=== PATIENT | female | born 1955 | race Caucasian/White ===

== ENCOUNTER 2018-03-23 12:41 | Inpatient (IN) | payer MEDICARE, MEDICAID ==
[~2018-03-23] VITALS: Ht 157.5 cm; Wt 72.6 kg
[2018-03-23 15:08] LABS: BASOPHILS % 0.9 % (0.0-2.0); EOSINOPHILS % 1.1 % (0.0-5.0); HEMATOCRIT. 32.3 % (36.0-48.0); HEMOGLOBIN. 10.8 g/dL (12.0-16.0); LYMPHOCYTES % 10.2 % (20.0-50.0); MEAN CORPUSCULAR VOLUME 86.9 fL (81.0-99.0); MEAN PLATELET VOLUME 9.1 fl (7.4-10.4); MONOCYTES % 8.2 % (2.0-8.0); NEUTROPHILS % 79.6 % (40.0-76.0); PLATELET 260 x1000/uL (130-400); RED BLOOD CELL COUNT 3.72 mill/uL (4.2-5.4); RED CELL DISTRIBUTION WIDTH 16.4 % (11.6-14.6)
[2018-03-23 15:13] LABS: CHLORIDE 100 mEq/L (98-107)
[2018-03-23 15:15] LABS: INR 1.1; PROTHROMBIN TIME 10.9 sec (9.1-11.1)
[2018-03-23 15:23] LABS: ETHANOL BLOOD < 10 mg/dL
[2018-03-23 15:26] LABS: CREATINE KINASE MB FRACTION < 1.0 ng/mL (0.5-3.6)
[2018-03-23 15:27] LABS: CREATINE KINASE 19 IU/L (26-192)
[2018-03-23] MEDS ORDERED: DILTIAZEM HCL 5MG/ML 5ML VIAL IV NR (15:45)
[2018-03-23] MEDS ORDERED: DILTIAZEM HCL 5MG/ML 5ML VIAL IV ONE (15:45)
[2018-03-23] MEDS ORDERED: ONDANSETRON HCL 4MG/2ML INJ IV ONE (15:45)
[2018-03-23] MEDS ORDERED: FUROSEMIDE 20MG/2ML VIAL IVP ONE (15:45)
[2018-03-23] MEDS ORDERED: HYDROCODONE/ACETAMINOPHEN 5/325MG TABLET PO ONE (15:45)
[2018-03-23] MEDS ORDERED: MAGNESIUM/ALUMINUM HYDROXIDE/SIMETHICONE 30ML UDC PO PRN (16:45)
[2018-03-23] MEDS ORDERED: GUAIFENESIN 200MG/10ML SUGAR FREE UDC PO PRN (16:45)
[2018-03-23] MEDS ORDERED: ONDANSETRON HCL 4MG/2ML INJ IV PRN (16:45)
[2018-03-23] MEDS ORDERED: LORAZEPAM 0.5MG TABLET PO PRN (16:45)
[2018-03-23] MEDS ORDERED: DIPHENHYDRAMINE 50MG/ML VIAL IV PRN (16:45)
[2018-03-23] MEDS ORDERED: KCL 10MEQ/50ML PREMIX 50 ML IV ONE (16:45)
[2018-03-23] MEDS ORDERED: ACETAMINOPHEN 325MG TABLET PO PRN (16:45)
[2018-03-23] MEDS ORDERED: POTASSIUM CHLORIDE INJ 40 MEQ in DEXT 5% WATER 250 ML IV ONE (16:45)
[2018-03-23] MEDS ORDERED: MAGNESIUM 2 G PREMIX 50 ML IV ONE (16:45)
[2018-03-23] MEDS ORDERED: POTASSIUM CHLORIDE 20MEQ TABLET SR PO ONE (16:45)
[2018-03-23] MEDS ORDERED: ACETAMINOPHEN 650MG SUPP PR PRN (16:45)
[2018-03-23] MEDS ORDERED: CLONIDINE 0.1MG TABLET PO PRN (16:45)
[2018-03-23] MEDS ORDERED: DOCUSATE SODIUM 100MG CAPSULE PO PRN (16:45)
[2018-03-23] MEDS ORDERED: IPRATROPIUM/ALBUTEROL 0.5-3(2.5)MG/3ML NEB INH PRN (16:45)
[2018-03-23] MEDS ORDERED: KCL 20MEQ/100ML PREMIX 100 ML IV ONE (17:15)
[2018-03-23 21:00] VITALS: BP 116/69
[2018-03-23 21:25] VITALS: BP 116/69
[2018-03-23] MEDS ORDERED: DIGOXIN 500MCG/2ML AMP IV NR (21:35)
[2018-03-23] MEDS ORDERED: NA PHOS,M-B/NA PHOS,DI-BA ENEMA 118ML PR PRN (22:00)
[2018-03-23] MEDS: ALLOPURINOL 100 MG TABLET PO SCH (22:07)
[2018-03-23] MEDS: DILTIAZEM HCL 30MG TABLET PO SCH (22:08)
[2018-03-23] MEDS: ENOXAPARIN 60MG/0.6ML SYR SUBCUT SCH (22:09)
[2018-03-23] MEDS ORDERED: MAGNESIUM 2 G PREMIX 50 ML IV NR (22:30)
[2018-03-23] MEDS: DEXT 5%/0.45% NACL KCL 20MEQ/L 1,000 ML IV SCH (23:34)
[2018-03-24] VITALS (7 sets, daily range): BP systolic 90–124; BP diastolic 61–94
[2018-03-24 00:21] LABS: CREATINE KINASE 20 IU/L (26-192)
[2018-03-24 00:22] LABS: CREATINE KINASE MB FRACTION < 1.0 ng/mL (0.5-3.6)
[2018-03-24 06:40] LABS: BASOPHILS % 1.2 % (0.0-2.0); EOSINOPHILS % 7.4 % (0.0-5.0); HEMOGLOBIN. 9.8 g/dL (12.0-16.0); LYMPHOCYTES % 24.5 % (20.0-50.0); MEAN CORPUSCULAR HEMOGLOBIN 29.2 pg (28.0-32.0); MEAN CORPUSCULAR VOLUME 86.6 fL (81.0-99.0); MEAN PLATELET VOLUME 9.3 fl (7.4-10.4); MONOCYTES % 8.4 % (2.0-8.0); NEUTROPHILS % 58.5 % (40.0-76.0); PLATELET 248 x1000/uL (130-400); RED BLOOD CELL COUNT 3.35 mill/uL (4.2-5.4); RED CELL DISTRIBUTION WIDTH 16.6 % (11.6-14.6)
[2018-03-24] MEDS: DILTIAZEM HCL 30MG TABLET PO SCH ×3 (06:40→22:24)
[2018-03-24 07:04] LABS: CHLORIDE 99 mEq/L (98-107)
[2018-03-24 07:21] LABS: LDL CHOLESTEROL 137 mg/dL (5-100); PHOSPHORUS 2.6 mg/dL (2.5-4.9)
[2018-03-24 07:22] LABS: CREATINE KINASE MB FRACTION < 1.0 ng/mL (0.5-3.6); HDL CHOLESTEROL 15 mg/dL (40-59); T4 FREE 1.53 ng/dL (0.76-1.46)
[2018-03-24 07:24] LABS: CREATINE KINASE 20 IU/L (26-192)
[2018-03-24] MEDS: HYDROCODONE/ACETAMINOPHEN 5/325MG TABLET PO PRN ×3 (08:51→20:49)
[2018-03-24] MEDS: ENOXAPARIN 60MG/0.6ML SYR SUBCUT SCH (08:52)
[2018-03-24] MEDS: ASPIRIN 81MG EC TABLET PO SCH (08:52)
[2018-03-24] MEDS: ALLOPURINOL 100 MG TABLET PO SCH ×2 (08:52→17:34)
[2018-03-24] MEDS ORDERED: POTASSIUM CHLORIDE 20MEQ TABLET SR PO NR (09:19)
[2018-03-24] MEDS ORDERED: MAGNESIUM 2 G PREMIX 50 ML IV NR (10:30)
[2018-03-24] MEDS: DEXT 5%/0.45% NACL KCL 20MEQ/L 1,000 ML IV SCH (15:05)
[2018-03-24] MEDS: PREDNISONE 20MG TABLET PO SCH (17:35)
[2018-03-24] MEDS ORDERED: KCL 20MEQ/100ML PREMIX 100 ML IV NR (18:00)
[2018-03-24] MEDS: ATORVASTATIN CALCIUM 20MG TABLET PO SCH (20:50)
[2018-03-25] VITALS (7 sets, daily range): BP systolic 81–164; BP diastolic 41–97
[2018-03-25] MEDS: DILTIAZEM HCL 30MG TABLET PO SCH ×3 (06:00→20:45)
[2018-03-25] MEDS: DEXT 5%/0.45% NACL KCL 20MEQ/L 1,000 ML IV SCH (08:20)
[2018-03-25] MEDS: ASPIRIN 81MG EC TABLET PO SCH (08:32)
[2018-03-25] MEDS: ENOXAPARIN 40MG/0.4ML SYR SUBCUT SCH (08:32)
[2018-03-25] MEDS: ALLOPURINOL 100 MG TABLET PO SCH ×2 (08:32→16:48)
[2018-03-25] MEDS: PREDNISONE 20MG TABLET PO SCH ×2 (08:32→16:48)
[2018-03-25 17:10] LABS: CHLORIDE 99 mEq/L (98-107)
[2018-03-25] MEDS: ATORVASTATIN CALCIUM 20MG TABLET PO SCH (20:44)
[2018-03-26] VITALS (7 sets, daily range): BP systolic 114–134; BP diastolic 62–76
[2018-03-26] MEDS: DEXT 5%/0.45% NACL KCL 20MEQ/L 1,000 ML IV SCH (02:12)
[2018-03-26] MEDS: DILTIAZEM HCL 30MG TABLET PO SCH ×3 (06:13→21:07)
[2018-03-26] MEDS: ASPIRIN 81MG EC TABLET PO SCH (08:59)
[2018-03-26] MEDS: PREDNISONE 20MG TABLET PO SCH ×2 (08:59→16:55)
[2018-03-26] MEDS: ENOXAPARIN 40MG/0.4ML SYR SUBCUT SCH (09:00)
[2018-03-26] MEDS: ALLOPURINOL 100 MG TABLET PO SCH ×2 (09:07→16:55)
[2018-03-26] MEDS: HYDROCODONE/ACETAMINOPHEN 5/325MG TABLET PO PRN (09:09)
[2018-03-26 13:45] LABS: CLARITY URINE CLOUDY (CLEAR); COLOR URINE YELLOW (YELLOW); KETONES URINE NEGATIVE (NEGATIVE); LEUKOCYTE ESTERASE URINE NEGATIVE (NEGATIVE); NITRITE URINE NEGATIVE (NEGATIVE); OCCULT BLOOD URINE NEGATIVE (NEGATIVE); PROTEIN URINE NEGATIVE (NEGATIVE); SPECIFIC GRAVITY URINE 1.026 (1.005-1.030)
[2018-03-26 16:50] LABS: HEMATOCRIT 30.4 % (36.0-48.0); HEMOGLOBIN 9.9 g/dL (12.0-16.0); MEAN CORPUSCULAR HEMOGLOBIN 29.1 pg (28.0-32.0); MEAN CORPUSCULAR VOLUME 89.2 fL (81.0-99.0); PLATELET 303 x1000/uL (130-400); RED BLOOD CELL COUNT 3.41 mill/uL (4.2-5.4); RED CELL DISTRIBUTION WIDTH 16.1 % (11.6-14.6)
[2018-03-26 17:12] LABS: CHLORIDE 102 mEq/L (98-107)
[2018-03-26] MEDS: ATORVASTATIN CALCIUM 20MG TABLET PO SCH (21:07)
[2018-03-26] MEDS ORDERED: MAGNESIUM SULFATE 1GM/2ML VIAL IM ONE (23:00)
[2018-03-26] MEDS ORDERED: MAGNESIUM 2 G PREMIX 50 ML IV NR (23:30)
[2018-03-27] VITALS: BP 129/69
== END 2018-03-27 01:00 | DRG 553 ==
LOC: ER 13:00 → 7WST 16:24 → EDBEDREQ 16:28 → EDBEDREQTM 16:28 → SUPCPDRO 16:33 → CANRESERV 17:58 → ENRESERV 17:58
PROVIDERS: ADMIT Internal Medicine; ATTEND Internal Medicine
DX: M11.241 Other chondrocalcinosis, right hand (principal); I50.23 Acute on chronic systolic (congestive) heart failure; D68.59 Other primary thrombophilia; E86.0 Dehydration; I48.91 Unspecified atrial fibrillation; M10.9 Gout, unspecified; R26.9 Unspecified abnormalities of gait and mobility; I11.0 Hypertensive heart disease with heart failure; E11.65 Type 2 diabetes mellitus with hyperglycemia; E78.5 Hyperlipidemia, unspecified; E83.41 Hypermagnesemia; E83.42 Hypomagnesemia; E87.6 Hypokalemia; R62.7 Adult failure to thrive
CPT/HCPCS: 36415; 71045; 73130; 73200; 80048; 80061; 82330; 82550; 82553; 83036; 83735; 83880; 84100; 84439; 84443; 84484; 84550; 85027; 85651; 93005; 93306; 93970; 93971; 96361; 96365; 96375; 97116; 97162; 97530; 99291; G0482; J1160; J1650; J1940; J2405; J3475; J3480; J3490; J7040; J7050; J7512

== ENCOUNTER 2020-07-27 17:36 | Inpatient (IN) | payer MEDICARE, MEDICAID ==
[~2020-07-27] VITALS: Ht 154.9 cm; Wt 82.1 kg
[2020-07-27 17:59] LABS: BASOPHILS % 1.2 % (0.0-2.0); EOSINOPHILS % 2.6 % (0.0-5.0); HEMATOCRIT. 36.4 % (36.0-48.0); HEMOGLOBIN. 12.4 g/dL (12.0-16.0); LYMPHOCYTES % 29.2 % (20.0-50.0); MEAN CORPUSCULAR HEMOGLOBIN 31.1 pg (28.0-32.0); MEAN CORPUSCULAR VOLUME 91.5 fL (81.0-99.0); MEAN PLATELET VOLUME 6.9 fl (7.4-10.4); PLATELET 248 x1000/uL (130-400); RED BLOOD CELL COUNT 3.97 mill/uL (4.2-5.4); RED CELL DISTRIBUTION WIDTH 16.8 % (11.6-14.6)
[2020-07-27] MEDS ORDERED: DILTIAZEM HCL 5MG/ML 5ML VIAL IV ONE ×2 (18:00→20:30)
[2020-07-27] MEDS ORDERED: MORPHINE SULFATE 4 MG/ML CPJ (NOT FOR IM USE) IV ONE (18:00)
[2020-07-27] MEDS ORDERED: ASPIRIN 81MG TABLET PO ONE (18:00)
[2020-07-27 18:08] LABS: CHLORIDE 110 mEq/L (98-107)
[2020-07-27 18:11] LABS: ETHANOL BLOOD 28 mg/dL
[2020-07-27] MEDS ORDERED: DILTIAZEM HCL 120MG CAPSULE CD 24HR PO ONE (18:30)
[2020-07-28 00:02] LABS: *BARBITURATES SCREEN URINE NEGATIVE (NEGATIVE)
[2020-07-28 00:03] LABS: *AMPHETAMINES SCREEN URINE NEGATIVE (NEGATIVE); *BENZODIAZEPINES SCREEN URINE NEGATIVE (NEGATIVE); *COCAINE SCREEN URINE NEGATIVE (NEGATIVE); METHADONE URINE SCREEN NEGATIVE (NEGATIVE); OPIATES URINE SCREEN PRESUMTIVE POSITIVE (NEGATIVE); PHENCYCLIDINE URINE SCREEN NEGATIVE (NEGATIVE)
[2020-07-28 00:04] LABS: CANNABINOID URINE SCREEN NEGATIVE (NEGATIVE)
[2020-07-28] MEDS ORDERED: DILTIAZEM HCL 125 MG in DEXTROSE 5% WATER 125 ML IV PRN (01:15)
[2020-07-28] MEDS ORDERED: POTASSIUM CHLORIDE 20MEQ TABLET SR PO SCH (01:30)
[2020-07-28] MEDS ORDERED: DIGOXIN 500MCG/2ML AMP IV NR (01:30)
[2020-07-28] MEDS: MORPHINE SULFATE 2 MG/ML CPJ (NOT FOR IM USE) IV PRN ×2 (01:37→16:51)
[2020-07-28] MEDS ORDERED: ENOXAPARIN 80MG/0.8ML SYR SUBCUT SCH (02:00)
[2020-07-28 09:15] VITALS: BP 144/79
[2020-07-28 12:01] VITALS: BP 144/79
[2020-07-28 12:30] VITALS: BP 144/79
[2020-07-28] MEDS: DILTIAZEM HCL 30MG TABLET PO SCH ×2 (14:07→21:50)
[2020-07-28] MEDS: PANTOPRAZOLE SODIUM 40 MG/VIAL IV SCH (14:07)
[2020-07-28 16:47] VITALS: BP 152/80
[2020-07-28] MEDS: ASPIRIN 81MG EC TABLET PO SCH (16:50)
[2020-07-28] MEDS ORDERED: ACETAMINOPHEN 650MG SUPP PR PRN (17:30)
[2020-07-28] MEDS ORDERED: ONDANSETRON HCL 4MG/2ML INJ IV PRN (17:30)
[2020-07-28] MEDS ORDERED: BISACODYL 10MG SUPP PR PRN (17:30)
[2020-07-28] MEDS ORDERED: IPRATROPIUM/ALBUTEROL 0.5-3(2.5)MG/3ML NEB HHN PRN (17:30)
[2020-07-28] MEDS ORDERED: HYDRALAZINE 20MG/ML VIAL IV PRN (17:30)
[2020-07-28 17:35] LABS: BASOPHILS % 0.5 % (0.0-2.0); EOSINOPHILS % 2.2 % (0.0-5.0); HEMATOCRIT. 31.3 % (36.0-48.0); HEMOGLOBIN. 10.6 g/dL (12.0-16.0); LYMPHOCYTES % 25.6 % (20.0-50.0); MEAN CORPUSCULAR HEMOGLOBIN 30.6 pg (28.0-32.0); MEAN CORPUSCULAR VOLUME 90.6 fL (81.0-99.0); MEAN PLATELET VOLUME 7.2 fl (7.4-10.4); MONOCYTES % 6.9 % (2.0-8.0); NEUTROPHILS % 64.8 % (40.0-76.0); PLATELET 171 x1000/uL (130-400); RED BLOOD CELL COUNT 3.45 mill/uL (4.2-5.4); RED CELL DISTRIBUTION WIDTH 16.7 % (11.6-14.6)
[2020-07-28 17:39] LABS: INR 1.1; PROTHROMBIN TIME 11.9 sec (9.6-11.0)
[2020-07-28 17:40] LABS: CHLORIDE 106 mEq/L (98-107)
[2020-07-28 20:32] VITALS: BP 145/79
[2020-07-28 21:45] LABS: CLARITY URINE CLEAR (CLEAR); COLOR URINE YELLOW (YELLOW); KETONES URINE NEGATIVE (NEGATIVE); LEUKOCYTE ESTERASE URINE NEGATIVE (NEGATIVE); NITRITE URINE NEGATIVE (NEGATIVE); OCCULT BLOOD URINE NEGATIVE (NEGATIVE); PROTEIN URINE NEGATIVE (NEGATIVE); SPECIFIC GRAVITY URINE 1.012 (1.005-1.030)
[2020-07-28] MEDS: ENOXAPARIN 80MG/0.8ML SYR SUBCUT SCH (21:49)
[2020-07-28] MEDS ORDERED: MAGNESIUM 4 G PREMIX 100 ML IV ONE (22:00)
[2020-07-28] MEDS ORDERED: MAGNESIUM SULFATE 3 GM in DEXTROSE 5% WATER 100 ML IV NR (23:00)
[2020-07-29] VITALS (7 sets, daily range): BP systolic 128–173; BP diastolic 69–102
[2020-07-29 06:12] LABS: BASOPHILS % 0.7 % (0.0-2.0); EOSINOPHILS % 4.7 % (0.0-5.0); HEMOGLOBIN. 10.2 g/dL (12.0-16.0); LYMPHOCYTES % 36.2 % (20.0-50.0); MEAN CORPUSCULAR HEMOGLOBIN 30.4 pg (28.0-32.0); MEAN CORPUSCULAR VOLUME 92.5 fL (81.0-99.0); MEAN PLATELET VOLUME 7.3 fl (7.4-10.4); MONOCYTES % 7.1 % (2.0-8.0); NEUTROPHILS % 51.3 % (40.0-76.0); PLATELET 165 x1000/uL (130-400); RED BLOOD CELL COUNT 3.36 mill/uL (4.2-5.4); RED CELL DISTRIBUTION WIDTH 17.2 % (11.6-14.6)
[2020-07-29] MEDS: ASPIRIN 81MG EC TABLET PO SCH (08:07)
[2020-07-29] MEDS: PANTOPRAZOLE SODIUM 40 MG/VIAL IV SCH (08:07)
[2020-07-29] MEDS: DILTIAZEM HCL 30MG TABLET PO SCH ×2 (08:07→15:30)
[2020-07-29] MEDS: ENOXAPARIN 80MG/0.8ML SYR SUBCUT SCH (08:08)
[2020-07-29] MEDS ORDERED: MAGNESIUM 2 G PREMIX 50 ML IV NR (11:00)
[2020-07-29] MEDS: ACETAMINOPHEN 325MG TABLET PO PRN (17:57)
[2020-07-30] MEDS: ALPRAZOLAM 0.25 MG TABLET PO PRN ×2 (01:30→21:37)
[2020-07-30 04:00] VITALS: BP 110/84
[2020-07-30 07:08] LABS: INR 1.1; PROTHROMBIN TIME 11.3 sec (9.6-11.0)
[2020-07-30 07:32] LABS: BASOPHILS % 0.3 % (0.0-2.0); EOSINOPHILS % 3.1 % (0.0-5.0); HEMATOCRIT. 34.2 % (36.0-48.0); HEMOGLOBIN. 11.3 g/dL (12.0-16.0); LYMPHOCYTES % 19.9 % (20.0-50.0); MEAN CORPUSCULAR HEMOGLOBIN 30.4 pg (28.0-32.0); MEAN CORPUSCULAR VOLUME 92.3 fL (81.0-99.0); MEAN PLATELET VOLUME 7.9 fl (7.4-10.4); MONOCYTES % 7.6 % (2.0-8.0); NEUTROPHILS % 69.1 % (40.0-76.0); PLATELET 159 x1000/uL (130-400); RED BLOOD CELL COUNT 3.71 mill/uL (4.2-5.4)
[2020-07-30 08:00] VITALS: BP 138/92
[2020-07-30] MEDS ORDERED: DILTIAZEM HCL 120MG CAPSULE CD 24HR PO SCH (09:00)
[2020-07-30] MEDS: ACETAMINOPHEN 325MG TABLET PO PRN ×4 (09:04→18:44)
[2020-07-30] MEDS: FAMOTIDINE 20MG/2ML VIAL IV SCH (09:04)
[2020-07-30] MEDS: ASPIRIN 81MG EC TABLET PO SCH (09:04)
[2020-07-30] MEDS: ENOXAPARIN 80MG/0.8ML SYR SUBCUT SCH (09:05)
[2020-07-30] MEDS ORDERED: POTASSIUM CHLORIDE 20MEQ/PACKET PO SCH (10:45)
[2020-07-30 12:00] VITALS: BP 123/79
[2020-07-30] MEDS ORDERED: DILTIAZEM HCL 5MG/ML 5ML VIAL IV PRN (12:45)
[2020-07-30 16:00] VITALS: BP 147/87
[2020-07-30] MEDS ORDERED: DILTIAZEM HCL 60MG TABLET PO NR (16:00)
[2020-07-30] MEDS ORDERED: DILTIAZEM HCL 30MG TABLET PO ONE (16:00)
[2020-07-30] MEDS ORDERED: POTASSIUM CHLORIDE 20MEQ TABLET SR PO NR (16:00)
[2020-07-30 20:00] VITALS: BP 152/85
[2020-07-30] MEDS: DILTIAZEM HCL 120MG CAPSULE CD 24HR PO SCH (21:37)
[2020-07-31] VITALS: BP 144/75
[2020-07-31] MEDS ORDERED: MAGNESIUM 2 G PREMIX 50 ML IV NR (01:30)
[2020-07-31 04:00] VITALS: BP 122/87
[2020-07-31 07:42] LABS: BASOPHILS % 0.7 % (0.0-2.0); EOSINOPHILS % 5.4 % (0.0-5.0); HEMATOCRIT. 33.2 % (36.0-48.0); HEMOGLOBIN. 11.2 g/dL (12.0-16.0); MEAN CORPUSCULAR HEMOGLOBIN 31.1 pg (28.0-32.0); MEAN CORPUSCULAR VOLUME 92.4 fL (81.0-99.0); MEAN PLATELET VOLUME 8.1 fl (7.4-10.4); MONOCYTES % 7.7 % (2.0-8.0); NEUTROPHILS % 54.2 % (40.0-76.0); PLATELET 147 x1000/uL (130-400); RED BLOOD CELL COUNT 3.59 mill/uL (4.2-5.4); RED CELL DISTRIBUTION WIDTH 17.4 % (11.6-14.6)
[2020-07-31 08:00] VITALS: BP 144/91
[2020-07-31] MEDS: ASPIRIN 81MG EC TABLET PO SCH (09:26)
[2020-07-31] MEDS: FAMOTIDINE 20MG/2ML VIAL IV SCH (09:26)
[2020-07-31] MEDS: ENOXAPARIN 80MG/0.8ML SYR SUBCUT SCH ×2 (09:27→21:08)
[2020-07-31] MEDS: DILTIAZEM HCL 120MG CAPSULE CD 24HR PO SCH ×2 (09:30→21:07)
[2020-07-31] MEDS: MAGNESIUM OXIDE 400MG TABLET PO SCH (10:44)
[2020-07-31 12:00] VITALS: BP 109/77
[2020-07-31] MEDS: ACETAMINOPHEN 325MG TABLET PO PRN (14:36)
[2020-07-31 16:00] VITALS: BP 135/92
[2020-07-31 20:00] VITALS: BP 144/97
[2020-07-31] MEDS: ALPRAZOLAM 0.25 MG TABLET PO PRN (21:07)
[2020-08-01] VITALS: BP 114/60
[2020-08-01 04:00] VITALS: BP 127/81
[2020-08-01 07:01] LABS: BASOPHILS % 0.7 % (0.0-2.0); EOSINOPHILS % 5.5 % (0.0-5.0); HEMATOCRIT. 31.2 % (36.0-48.0); HEMOGLOBIN. 10.5 g/dL (12.0-16.0); LYMPHOCYTES % 34.8 % (20.0-50.0); MEAN CORPUSCULAR HEMOGLOBIN 31.2 pg (28.0-32.0); MEAN CORPUSCULAR VOLUME 92.8 fL (81.0-99.0); MEAN PLATELET VOLUME 8.6 fl (7.4-10.4); MONOCYTES % 7.5 % (2.0-8.0); NEUTROPHILS % 51.5 % (40.0-76.0); PLATELET 144 x1000/uL (130-400); RED BLOOD CELL COUNT 3.36 mill/uL (4.2-5.4); RED CELL DISTRIBUTION WIDTH 17.4 % (11.6-14.6)
[2020-08-01] MEDS: FAMOTIDINE 20MG/2ML VIAL IV SCH (08:46)
[2020-08-01] MEDS: DILTIAZEM HCL 120MG CAPSULE CD 24HR PO SCH (08:46)
[2020-08-01] MEDS: MAGNESIUM OXIDE 400MG TABLET PO SCH (08:47)
[2020-08-01] MEDS: ASPIRIN 81MG EC TABLET PO SCH (08:47)
[2020-08-01] MEDS: ENOXAPARIN 80MG/0.8ML SYR SUBCUT SCH (08:47)
[2020-08-01 11:51] VITALS: BP 136/88
[2020-08-01 11:53] VITALS: BP 136/88
[2020-08-02] MEDS ORDERED: ENOXAPARIN 80MG/0.8ML SYR SUBCUT SCH (09:00)
== END 2020-08-01 16:24 | DRG 308 ==
LOC: ER 17:36 → EDBEDREQ 22:11 → EDBEDREQTM 22:11 → EDBEDREQDT 07-28 00:45 → EDBEDREQSVC 07-28 00:45 → EDBEDREQTM 07-28 00:45 → EDBEDREQSVC 07-28 05:29 → ENRESERV 07-28 07:28 → 6WST 07-28 08:59
PROVIDERS: ADMIT Internal Medicine; ATTEND Hospitalist
PROC: 4B02XTZ Measurement of Cardiac Defibrillator, External Approach (ICD-10-PCS; principal; 2020-07-29)
DX: I49.9 Cardiac arrhythmia, unspecified (principal); I50.43 Acute on chronic combined systolic (congestive) and diastolic (congestive) heart failure; D68.59 Other primary thrombophilia; I48.91 Unspecified atrial fibrillation; E78.5 Hyperlipidemia, unspecified; E83.42 Hypomagnesemia; E87.6 Hypokalemia; N28.9 Disorder of kidney and ureter, unspecified; I11.0 Hypertensive heart disease with heart failure; E11.9 Type 2 diabetes mellitus without complications; I25.10 Atherosclerotic heart disease of native coronary artery without angina pectoris; R00.0 Tachycardia, unspecified; Z95.810 Presence of automatic (implantable) cardiac defibrillator; Z79.01 Long term (current) use of anticoagulants; Z82.49 Family history of ischemic heart disease and other diseases of the circulatory system
CPT/HCPCS: 36415; 71045; 74176; 76700; 80048; 80053; 80061; 80162; 80305; 80320; 81003; 82962; 83735; 83880; 84484; 85025; 93005; 93306; 93970; 97162; 99285; C9113; J0360; J1160; J1650; J2270; J3475; J3490; J7040; J7060; G0480

== ENCOUNTER 2021-02-12 16:12 | Emergency (ER) | payer MEDICARE, MEDICAID ==
[~2021-02-12] VITALS: Ht 157.5 cm; Wt 75.0 kg
[2021-02-12 16:45] LABS: BASOPHILS % 0.8 % (0.0-2.0); EOSINOPHILS % 6.7 % (0.0-5.0); HEMATOCRIT. 30.8 % (36.0-48.0); HEMOGLOBIN. 10.3 g/dL (12.0-16.0); LYMPHOCYTES % 26.8 % (20.0-50.0); MEAN CORPUSCULAR HEMOGLOBIN 30.2 pg (28.0-32.0); MEAN CORPUSCULAR VOLUME 90.6 fL (81.0-99.0); MEAN PLATELET VOLUME 7.7 fl (7.4-10.4); MONOCYTES % 7.4 % (2.0-8.0); NEUTROPHILS % 58.3 % (40.0-76.0); PLATELET 205 x1000/uL (130-400); RED BLOOD CELL COUNT 3.41 mill/uL (4.2-5.4); RED CELL DISTRIBUTION WIDTH 15.3 % (11.6-14.6)
[2021-02-12 16:53] LABS: CHLORIDE 106 mEq/L (98-107)
[2021-02-12 19:09] LABS: CLARITY URINE CLEAR (CLEAR); COLOR URINE YELLOW (YELLOW); KETONES URINE NEGATIVE (NEGATIVE); LEUKOCYTE ESTERASE URINE NEGATIVE (NEGATIVE); NITRITE URINE NEGATIVE (NEGATIVE); OCCULT BLOOD URINE NEGATIVE (NEGATIVE); PH URINE 5.5 (4.5-8.0); PROTEIN URINE NEGATIVE (NEGATIVE); SPECIFIC GRAVITY URINE 1.012 (1.005-1.030)
[2021-02-12] MEDS ORDERED: TRAMADOL 50MG TABLET PO ONE (19:15)
[2021-02-12] MEDS ORDERED: TRAM-529 MT (21:17)
[2021-02-12 21:45] VITALS: BP 162/82
== END 2021-02-12 22:11 | disposition home or self-care (01) ==
LOC: ER 16:12
DX: M25.552 Pain in left hip (principal); M25.551 Pain in right hip
CPT/HCPCS: 36415; 71045; 80053; 81003; 83880; 84484; 85025; 93005; 99285

== ENCOUNTER 2022-05-29 10:03 | Emergency (ER) | payer MEDICARE, MEDICAID ==
[~2022-05-29] VITALS: Ht 157.5 cm; Wt 76.0 kg
[~2022-05-29 10:03] MED LIST: AMIO100T4 PO; ATOR20TA PO; CINA30 PO; FOLI1TAB87 PO; FURO20TA4 PO; LEVO50TA PO; METO-385 PO; RIVA20TA PO; TRAM-529 MT; VALS40TA11 PO
[2022-05-29] MEDS ORDERED: ONDANSETRON HCL 4MG/2ML INJ IV ONE (10:15)
[2022-05-29] MEDS ORDERED: FAMOTIDINE 20MG/2ML VIAL IV ONE (10:15)
[2022-05-29] MEDS ORDERED: MAGNESIUM/ALUMINUM HYDROXIDE/SIMETHICONE 30ML UDC PO ONE (11:00)
[2022-05-29 12:07] LABS: BASOPHILS % 0.5 % (0.0-2.0); EOSINOPHILS % 0.7 % (0.0-5.0); HEMATOCRIT. 41.2 % (36.0-48.0); HEMOGLOBIN. 13.8 g/dL (12.0-16.0); LYMPHOCYTES % 12.4 % (20.0-50.0); MEAN CORPUSCULAR HEMOGLOBIN 30.7 pg (28.0-32.0); MEAN PLATELET VOLUME 8.7 fl (7.4-10.4); NEUTROPHILS % 78.4 % (40.0-76.0); PLATELET 159 x1000/uL (130-400); RED BLOOD CELL COUNT 4.48 mill/uL (4.2-5.4); RED CELL DISTRIBUTION WIDTH 15.2 % (11.6-14.6)
[2022-05-29 12:15] LABS: CHLORIDE 101 mEq/L (98-107)
[2022-05-29 12:23] LABS: INR 1.1; PROTHROMBIN TIME 11.6 sec (9.6-11.0)
[2022-05-29 12:49] LABS: CLARITY URINE CLEAR (CLEAR); COLOR URINE YELLOW (YELLOW); KETONES URINE NEGATIVE (NEGATIVE); LEUKOCYTE ESTERASE URINE TRACE (NEGATIVE); NITRITE URINE NEGATIVE (NEGATIVE); OCCULT BLOOD URINE NEGATIVE (NEGATIVE); PROTEIN URINE TRACE (NEGATIVE); SPECIFIC GRAVITY URINE 1.011 (1.005-1.030)
[2022-05-29] MEDS ORDERED: KETOROLAC 30MG/ML VIAL IV NR (14:30)
[2022-05-29] MEDS ORDERED: ACETAMINOPHEN 325MG TABLET PO NR (14:30)
[2022-05-29] MEDS ORDERED: FAMO-135 MT (15:39)
[2022-05-29 15:49] VITALS: BP 157/96
== END 2022-05-29 16:00 | disposition home or self-care (01) ==
LOC: ER 10:15
DX: R10.13 Epigastric pain (principal); I48.91 Unspecified atrial fibrillation; I25.10 Atherosclerotic heart disease of native coronary artery without angina pectoris; E78.00 Pure hypercholesterolemia, unspecified; I10 Essential (primary) hypertension; I25.2 Old myocardial infarction; Z95.0 Presence of cardiac pacemaker; Z79.899 Other long term (current) drug therapy
CPT/HCPCS: 36415; 80053; 81003; 83605; 83690; 84484; 85025; 85610; 96374; 96375; 99285; J1885; J2405; J3490

== ENCOUNTER 2023-10-27 17:37 | Inpatient (IN) | payer MEDICARE, MEDICAID ==
[~2023-10-27] VITALS: Ht 162.6 cm; Wt 60.4 kg
[~2023-10-27 17:37] MED LIST changes: +APIX5TAB MT; +FAMO-135 MT; -RIVA20TA PO; +SUCR1TAB PO
[2023-10-27 19:24] LABS: BASOPHILS % 0.9 % (0.0-2.0); HEMATOCRIT. 35.7 % (36.0-48.0); LYMPHOCYTES % 20.8 % (20.0-50.0); MEAN CORPUSCULAR HEMOGLOBIN 30.2 pg (28.0-32.0); MEAN CORPUSCULAR HGB CONC 33.6 g/dL (31.0-37.0); MEAN CORPUSCULAR VOLUME 89.9 fL (81.0-99.0); MEAN PLATELET VOLUME 9.2 fl (7.4-10.4); MONOCYTES % 5.6 % (2.0-8.0); NEUTROPHILS % 70.7 % (40.0-76.0); PLATELET 232 x1000/uL (130-400); RED BLOOD CELL COUNT 3.97 mill/uL (4.2-5.4); RED CELL DISTRIBUTION WIDTH 16.6 % (11.6-14.6); WHITE BLOOD COUNT 6.1 x1000/uL (4.5-11.0)
[2023-10-27 19:28] LABS: CHLORIDE 108 mEq/L (98-107); POTASSIUM 3.2 mEq/L (3.5-5.1); SODIUM 140 mEq/L (136-145)
[2023-10-27 19:29] LABS: CALCIUM 11.9 mg/dL (8.7-10.4); CARBON DIOXIDE 22 mEq/L (21-32)
[2023-10-27 19:34] LABS: CREATININE 1.5 mg/dL (0.6-1.0); GLUCOSE 97 mg/dL (70-105); UREA NITROGEN BLOOD 23 mg/dL (9-23)
[2023-10-27 19:35] LABS: INR 1.1; PROTHROMBIN TIME 12.4 sec (9.6-11.0)
[2023-10-27 19:36] LABS: ALANINE AMINOTRANSFERASE < 7 IU/L (10-49); ALBUMIN 3.6 g/dL (3.2-4.8); ASPARTATE AMINOTRANSFERASE 15 IU/L (<34); BILIRUBIN DIRECT 0.4 mg/dL (<=3.0); CREATINE KINASE 29 IU/L (34-145); PROTEIN TOTAL 7.1 g/dL (6.0-8.3)
[2023-10-27 19:40] LABS: TROPONIN I HIGH SENSITIVITY 93 ng/L (3.0-34)
[2023-10-27] MEDS: SODIUM CHLORIDE 0.9% 1000ML BAG (SEPSIS BOLUS) IV ONE (19:40)
[2023-10-27] MEDS ORDERED: POTASSIUM CHLORIDE 20MEQ TABLET SR PO ONE (20:45)
[2023-10-27] MEDS: POTASSIUM CHLORIDE 20MEQ TABLET SR PO NR (22:38)
[2023-10-28] VITALS (7 sets, daily range): BP systolic 115–141; BP diastolic 78–93; PULSE 83–99; RESP 18–20; TEMP 97.4–97.9
[2023-10-28] MEDS ORDERED: SIMV-43 MT (00:24)
[2023-10-28] MEDS ORDERED: SUCR1TAB PO (00:40)
[2023-10-28] MEDS ORDERED: METO-411 MT (00:40)
[2023-10-28] MEDS ORDERED: METO-385 PO (00:40)
[2023-10-28] MEDS ORDERED: RIVA20TA MT (00:40)
[2023-10-28] MEDS ORDERED: AMIO100T4 MT (00:45)
[2023-10-28] MEDS ORDERED: DILT120T13 MT (00:45)
[2023-10-28 08:21] LABS: POTASSIUM 4.5 mEq/L (3.5-5.1)
[2023-10-28 08:23] LABS: CALCIUM 11.5 mg/dL (8.7-10.4)
[2023-10-28 08:27] LABS: CREATININE 1.3 mg/dL (0.6-1.0)
[2023-10-28] MEDS ORDERED: METOPROLOL SUCCINATE 50MG ER TABLET PO SCH (09:00)
[2023-10-28] MEDS: SUCRALFATE 1G TABLET PO SCH (09:44)
[2023-10-28] MEDS: METOPROLOL SUCCINATE 50MG ER TABLET PO SCH ×2 (09:44→20:47)
[2023-10-28] MEDS: FUROSEMIDE 20MG TABLET PO SCH (09:44)
[2023-10-28] MEDS: LOSARTAN 50 MG TABLET PO SCH (09:45)
[2023-10-28] MEDS: AMIODARONE HCL 200 MG TABLET PO SCH (09:45)
[2023-10-28] MEDS: LEVOTHYROXINE SODIUM 50MCG TABLET PO SCH (09:45)
[2023-10-28] MEDS: APIXABAN 5 MG TABLET PO SCH (09:45)
[2023-10-28 11:27] LABS: BASOPHILS % 0.7 % (0.0-2.0); EOSINOPHILS % 3.4 % (0.0-5.0); HEMATOCRIT. 36.8 % (36.0-48.0); HEMOGLOBIN. 11.9 g/dL (12.0-16.0); LYMPHOCYTES % 25.9 % (20.0-50.0); MEAN CORPUSCULAR HEMOGLOBIN 29.7 pg (28.0-32.0); MEAN CORPUSCULAR HGB CONC 32.3 g/dL (31.0-37.0); MEAN CORPUSCULAR VOLUME 92.1 fL (81.0-99.0); MEAN PLATELET VOLUME 9.3 fl (7.4-10.4); MONOCYTES % 6.7 % (2.0-8.0); NEUTROPHILS % 63.3 % (40.0-76.0); PLATELET 196 x1000/uL (130-400); RED CELL DISTRIBUTION WIDTH 16.8 % (11.6-14.6); WHITE BLOOD COUNT 8.2 x1000/uL (4.5-11.0)
[2023-10-28] MEDS: DOCUSATE SODIUM 250MG CAPSULE PO SCH (13:55)
[2023-10-28 16:05] LABS: CLARITY URINE CLEAR (CLEAR); COLOR URINE YELLOW (YELLOW); GLUCOSE URINE NEGATIVE (NEGATIVE); KETONES URINE NEGATIVE (NEGATIVE); LEUKOCYTE ESTERASE URINE 3+ (NEGATIVE); NITRITE URINE POSITIVE (NEGATIVE); OCCULT BLOOD URINE NEGATIVE (NEGATIVE); PROTEIN URINE TRACE (NEGATIVE); SPECIFIC GRAVITY URINE 1.012 (1.005-1.030); UROBILINOGEN URINE 0.2 E.U./dL (0.2-1.0)
[2023-10-28 17:02] LABS: BACTERIA URINE 3+
[2023-10-28 17:03] LABS: RBC URINE 0-2 /hpf (0-2); SQUAMOUS EPITHELIAL CELL URINE 1+ /lpf (RARE/1+); WBC URINE 15-25 /hpf (0-2)
[2023-10-28] MEDS ORDERED: RIVAROXABAN 20 MG TABLET PO SCH (18:00)
[2023-10-28] MEDS: CEFTRIAXONE 1GM/50ML 50 ML IV SCH (19:00)
[2023-10-28] MEDS: FAMOTIDINE 20MG TABLET PO SCH (20:47)
[2023-10-28] MEDS: ATORVASTATIN CALCIUM 20MG TABLET PO SCH (20:47)
[2023-10-29] VITALS: BP 135/89; PULSE 86; RESP 18; TEMP 97.5
[2023-10-29 04:00] VITALS: BP 122/71; PULSE 89; RESP 18; TEMP 97.5
[2023-10-29 08:00] VITALS: BP 129/79; PULSE 94; RESP 22; TEMP 97.4
[2023-10-29 12:00] VITALS: BP 148/71; PULSE 92; RESP 18; TEMP 98.1
[2023-10-29 12:25] LABS: EOSINOPHILS % 1.8 % (0.0-5.0); HEMATOCRIT. 35.6 % (36.0-48.0); HEMOGLOBIN. 11.6 g/dL (12.0-16.0); LYMPHOCYTES % 14.1 % (20.0-50.0); MEAN CORPUSCULAR HEMOGLOBIN 30.1 pg (28.0-32.0); MEAN CORPUSCULAR HGB CONC 32.5 g/dL (31.0-37.0); MEAN CORPUSCULAR VOLUME 92.6 fL (81.0-99.0); NEUTROPHILS % 79.1 % (40.0-76.0); PLATELET 182 x1000/uL (130-400); RED BLOOD CELL COUNT 3.85 mill/uL (4.2-5.4); RED CELL DISTRIBUTION WIDTH 16.6 % (11.6-14.6); WHITE BLOOD COUNT 6.6 x1000/uL (4.5-11.0)
[2023-10-29 12:33] LABS: POTASSIUM 3.7 mEq/L (3.5-5.1)
[2023-10-29 12:34] LABS: CALCIUM 11.1 mg/dL (8.7-10.4)
[2023-10-29 12:39] LABS: CREATININE 1.4 mg/dL (0.6-1.0)
[2023-10-29] MEDS ORDERED: ACETAMINOPHEN 325MG TABLET PO PRN (13:45)
[2023-10-29 16:00] VITALS: BP 99/66; PULSE 95; RESP 20; TEMP 97.6
[2023-10-29] MEDS ORDERED: NALOXONE HCL 0.4MG/ML VIAL IV PRN (19:30)
[2023-10-29] MEDS ORDERED: ACETAMINOPHEN 650MG/20.3ML UDC PO PRN (19:30)
[2023-10-29 20:36] VITALS: BP 117/98; PULSE 62; RESP 16; TEMP 97.3
[2023-10-30] VITALS (7 sets, daily range): BP systolic 99–118; BP diastolic 53–69; PULSE 70–100; RESP 18–20; TEMP 97.1–98.9
[2023-10-30] MEDS: ASCORBIC ACID 500 MG TABLET PO SCH (20:46)
[2023-10-30] MEDS: MULTIVITAMINS,THER W-MINERALS TABLET PO SCH (20:47)
[2023-10-31 00:34] VITALS: BP 104/66; PULSE 91; RESP 19; TEMP 97.1
[2023-10-31 04:50] VITALS: BP 117/74; PULSE 78; RESP 19; TEMP 97.1
[2023-10-31 08:00] VITALS: BP 110/66; PULSE 85; RESP 18; TEMP 97.6
[2023-10-31 12:19] VITALS: BP 110/56; PULSE 57; RESP 18; TEMP 98.5
[2023-10-31 16:00] VITALS: BP 100/79; PULSE 46; RESP 20; TEMP 97.7
[2023-10-31 20:00] VITALS: BP 101/64; PULSE 64; RESP 18; TEMP 97.7
[2023-11-01] VITALS: BP 104/78; PULSE 74; RESP 19; TEMP 97.9
[2023-11-01 04:00] VITALS: BP_SYST 131; BP_SYST 135; BP_DIAS 60; BP_DIAS 99; PULSE 92; RESP 19; TEMP 98.6
[2023-11-01 08:00] VITALS: BP 128/79; PULSE 86; RESP 20; TEMP 98
[2023-11-01 12:00] VITALS: BP 88/58; PULSE 79; RESP 18; TEMP 98.6
[2023-11-01] MEDS: SODIUM CHLORIDE 0.9% 1,000 ML IV ONE (12:45)
[2023-11-01 16:00] VITALS: BP 106/66; PULSE 89; RESP 20; TEMP 98.9
[2023-11-01] MEDS: DEXT 5%/0.45% NACL 1000ML 1,000 ML IV SCH (16:22)
[2023-11-01] MEDS: MIDODRINE HCL 5MG TABLET PO SCH (16:38)
[2023-11-01 17:08] LABS: BASOPHILS % 0.9 % (0.0-2.0); EOSINOPHILS % 3.8 % (0.0-5.0); HEMATOCRIT. 35.3 % (36.0-48.0); HEMOGLOBIN. 11.3 g/dL (12.0-16.0); LYMPHOCYTES % 21.4 % (20.0-50.0); MEAN CORPUSCULAR HEMOGLOBIN 29.5 pg (28.0-32.0); MEAN CORPUSCULAR HGB CONC 32.2 g/dL (31.0-37.0); MEAN CORPUSCULAR VOLUME 91.6 fL (81.0-99.0); MEAN PLATELET VOLUME 9.7 fl (7.4-10.4); MONOCYTES % 9.4 % (2.0-8.0); NEUTROPHILS % 64.5 % (40.0-76.0); PLATELET 203 x1000/uL (130-400); RED BLOOD CELL COUNT 3.85 mill/uL (4.2-5.4); RED CELL DISTRIBUTION WIDTH 16.3 % (11.6-14.6); WHITE BLOOD COUNT 7.2 x1000/uL (4.5-11.0)
[2023-11-01 17:18] LABS: POTASSIUM 2.9 mEq/L (3.5-5.1)
[2023-11-01 17:19] LABS: CALCIUM 10.1 mg/dL (8.7-10.4)
[2023-11-01 17:24] LABS: CREATININE 1.4 mg/dL (0.6-1.0)
[2023-11-01] MEDS: POTASSIUM CHLORIDE 20MEQ TABLET SR PO NR ×2 (19:25→21:24)
[2023-11-01] MEDS: LOSARTAN 25 MG TABLET PO SCH (19:25)
[2023-11-01] MEDS: METOPROLOL SUCCINATE 50MG ER TABLET PO SCH (19:26)
[2023-11-01 20:00] VITALS: BP 109/57; PULSE 65; RESP 20; TEMP 97.1
[2023-11-02] VITALS (7 sets, daily range): BP systolic 81–112; BP diastolic 49–79; PULSE 63–88; RESP 18–20; TEMP 96.8–97.3
[2023-11-02 07:31] LABS: CARBON DIOXIDE 24 mEq/L (21-32); CHLORIDE 106 mEq/L (98-107); POTASSIUM 3.2 mEq/L (3.5-5.1); SODIUM 138 mEq/L (136-145)
[2023-11-02 07:33] LABS: EOSINOPHILS % 6.5 % (0.0-5.0); HEMATOCRIT. 30.6 % (36.0-48.0); HEMOGLOBIN. 10.6 g/dL (12.0-16.0); LYMPHOCYTES % 29.9 % (20.0-50.0); MEAN CORPUSCULAR HEMOGLOBIN 31.5 pg (28.0-32.0); MEAN CORPUSCULAR HGB CONC 34.5 g/dL (31.0-37.0); MEAN CORPUSCULAR VOLUME 91.3 fL (81.0-99.0); MEAN PLATELET VOLUME 9.6 fl (7.4-10.4); MONOCYTES % 10.1 % (2.0-8.0); NEUTROPHILS % 52.5 % (40.0-76.0); PLATELET 195 x1000/uL (130-400); RED BLOOD CELL COUNT 3.35 mill/uL (4.2-5.4); RED CELL DISTRIBUTION WIDTH 16.3 % (11.6-14.6); WHITE BLOOD COUNT 8.1 x1000/uL (4.5-11.0)
[2023-11-02 07:37] LABS: CREATININE 1.3 mg/dL (0.6-1.0); GLUCOSE 99 mg/dL (70-105); UREA NITROGEN BLOOD 23 mg/dL (9-23)
[2023-11-02 07:39] LABS: PHOSPHORUS 1.8 mg/dL (2.5-4.9)
[2023-11-02] MEDS: METOPROLOL SUCCINATE 50MG ER TABLET PO SCH (09:00)
[2023-11-02] MEDS: MAGNESIUM 2 G PREMIX 50 ML IV NR (11:48)
[2023-11-02] MEDS: POTASSIUM PHOSPHATE 30 MMOL in DEXT 5% WATER 490 ML IV NR (11:49)
[2023-11-03] VITALS (8 sets, daily range): BP systolic 102–117; BP diastolic 55–117; PULSE 63–90; RESP 18–20; TEMP 97.5–98.2; O2SAT 64–100
[2023-11-03] MEDS: HYDROCODONE/ACETAMINOPHEN 5/325MG TABLET PO PRN (09:20)
[2023-11-03 13:34] LABS: EOSINOPHILS % 5.2 % (0.0-5.0); HEMATOCRIT. 29.7 % (36.0-48.0); HEMOGLOBIN. 9.8 g/dL (12.0-16.0); LYMPHOCYTES % 27.9 % (20.0-50.0); MEAN CORPUSCULAR HEMOGLOBIN 30.4 pg (28.0-32.0); MEAN CORPUSCULAR HGB CONC 33.2 g/dL (31.0-37.0); MEAN CORPUSCULAR VOLUME 91.5 fL (81.0-99.0); MEAN PLATELET VOLUME 9.5 fl (7.4-10.4); MONOCYTES % 11.4 % (2.0-8.0); NEUTROPHILS % 54.5 % (40.0-76.0); PLATELET 222 x1000/uL (130-400); RED BLOOD CELL COUNT 3.25 mill/uL (4.2-5.4); RED CELL DISTRIBUTION WIDTH 16.3 % (11.6-14.6); WHITE BLOOD COUNT 8.1 x1000/uL (4.5-11.0)
[2023-11-03 13:44] LABS: CHLORIDE 105 mEq/L (98-107); POTASSIUM 3.5 mEq/L (3.5-5.1); SODIUM 135 mEq/L (136-145)
[2023-11-03 13:45] LABS: CARBON DIOXIDE 21 mEq/L (21-32)
[2023-11-03 13:46] LABS: CALCIUM 9.8 mg/dL (8.7-10.4)
[2023-11-03 13:50] LABS: CREATININE 1.2 mg/dL (0.6-1.0); GLUCOSE 102 mg/dL (70-105)
[2023-11-03 13:51] LABS: UREA NITROGEN BLOOD 16 mg/dL (9-23)
[2023-11-03 13:53] LABS: PHOSPHORUS 2.6 mg/dL (2.5-4.9)
== END 2023-11-03 21:14 | DRG 391 ==
LOC: ER 17:37 → EDBEDREQTM 21:08 → EDBEDREQ 21:08 → 7WST 23:44
PROVIDERS: ADMIT Internal Medicine; ATTEND Internal Medicine
DX: K59.00 Constipation, unspecified (principal); I50.23 Acute on chronic systolic (congestive) heart failure; N39.0 Urinary tract infection, site not specified; I11.0 Hypertensive heart disease with heart failure; I48.91 Unspecified atrial fibrillation; Z95.810 Presence of automatic (implantable) cardiac defibrillator; E78.00 Pure hypercholesterolemia, unspecified; I25.10 Atherosclerotic heart disease of native coronary artery without angina pectoris; Z82.49 Family history of ischemic heart disease and other diseases of the circulatory system; Z86.718 Personal history of other venous thrombosis and embolism; Z91.199 Patient's noncompliance with other medical treatment and regimen due to unspecified reason; Z95.1 Presence of aortocoronary bypass graft
CPT/HCPCS: 36415; 71045; 74176; 80048; 80076; 81003; 82550; 83605; 83735; 83880; 84100; 84145; 84484; 85025; 87077; 87186; 87426; 93005; 97162; 97166; 99291; A6261; C1893; J0696; J3475; J3490; J7030; J7060

== ENCOUNTER 2024-07-18 12:32 | Emergency (ER) | payer MEDICARE, MEDICAID ==
[~2024-07-18] VITALS: Ht 162.6 cm; Wt 80.0 kg
[~2024-07-18 12:32] MED LIST changes: +AMIO100T4 MT; -AMIO100T4 PO; -ATOR20TA PO; -CINA30 PO; +DILT120T13 MT; -FOLI1TAB87 PO; +METO-411 MT; +RIVA20TA MT; +SIMV-43 MT; -TRAM-529 MT
[2024-07-18 12:37] VITALS: BP 0/0; PULSE 0; RESP 0; O2SAT 90
[2024-07-18] MEDS ORDERED: DEXTROSE 50% WATER 50ML SYRINGE IV ONE (12:43)
== END 2024-07-18 14:50 ==
LOC: ER 12:33
DX: I46.9 Cardiac arrest, cause unspecified (principal); I25.2 Old myocardial infarction; I10 Essential (primary) hypertension; E78.00 Pure hypercholesterolemia, unspecified; I48.91 Unspecified atrial fibrillation; Z79.899 Other long term (current) drug therapy
CPT/HCPCS: 31500; 31720; 82962; 92950; 94070; 94664; 99285